=== PATIENT | male | born 1995 | race Caucasian/White ===

== ENCOUNTER 2016-11-19 07:31 | Day surgery (SDC) | payer MEDICAID ==
[~2016-11-19] VITALS: Ht 170.2 cm; Wt 65.5 kg
[~2016-11-19 07:31] MED LIST: SODIUM CHLORIDE 0.9% 1,000 ML IV ONE
[2016-11-19] MEDS ORDERED: SODIUM CHLORIDE 0.9% 1,000 ML IV ONE (08:21)
[2016-11-19] MEDS ORDERED: PROPOFOL 1% 20 ML VIAL IVP ONE (23:45)
== END 2016-11-19 10:45 | disposition home or self-care (01) ==
LOC: EDSEX 07:31 → SURGERY 07:31 → EDSEX 09:30 → SURGERY 10:45
PROVIDERS: ATTEND Internal Medicine Gastroenterology
DX: K29.70 Gastritis, unspecified, without bleeding (principal); Z98.890 Other specified postprocedural states
CPT/HCPCS: 43239; 88305; 88312; C1769; J2704; J7030

== ENCOUNTER 2017-01-14 08:13 | Day surgery (SDC) | payer MEDICAID ==
[~2017-01-14] VITALS: Ht 170.2 cm; Wt 66.4 kg
[~2017-01-14 08:13] MED LIST changes: +ROCURONIUM BROMIDE 10 MG/ML 5 ML VIAL IVP ONE
[2017-01-14] MEDS ORDERED: SODIUM CHLORIDE 0.9% 1,000 ML IV ONE (08:26)
== END 2017-01-14 10:20 | disposition home or self-care (01) ==
LOC: SURGERY 08:13
PROVIDERS: ATTEND Internal Medicine Gastroenterology
DX: K63.89 Other specified diseases of intestine (principal); K29.70 Gastritis, unspecified, without bleeding; Z72.89 Other problems related to lifestyle; Z98.890 Other specified postprocedural states
CPT/HCPCS: 45380; 88305; J3490; J7030

== ENCOUNTER 2017-11-24 10:35 | Day surgery (SDC) | payer MEDICAID ==
[~2017-11-24] VITALS: Ht 170.2 cm; Wt 70.5 kg
[~2017-11-24 10:35] MED LIST changes: +OXYC-530 PO; -ROCURONIUM BROMIDE 10 MG/ML 5 ML VIAL IVP ONE
[2017-11-24] MEDS ORDERED: PROPOFOL 1% 20 ML VIAL IVP ONE (10:36)
[2017-11-24] MEDS ORDERED: LIDOCAINE HCL/PF 2% 5 ML VIAL INJ ONE (10:36)
== END 2017-11-24 14:20 | disposition home or self-care (01) ==
LOC: SURGERY 10:35
PROVIDERS: ATTEND Internal Medicine Gastroenterology
DX: K63.89 Other specified diseases of intestine (principal); K64.0 First degree hemorrhoids; Z90.89 Acquired absence of other organs; Z72.89 Other problems related to lifestyle; Z79.891 Long term (current) use of opiate analgesic; Z79.899 Other long term (current) drug therapy; Z98.890 Other specified postprocedural states
CPT/HCPCS: 45380; 88300; 88305; C1769; J2704; J3490; J7030